=== PATIENT | female | born 1935 | race Two or more races ===

== ENCOUNTER 2024-03-26 17:53 | Emergency (ER) | payer MEDICARE ==
[~2024-03-26] VITALS: Ht 170.2 cm; Wt 85.7 kg
[2024-03-26 17:58] VITALS: TEMP 98.2
[2024-03-26 18:36] LABS: BASOPHILS % (AUTO) 0.2 % (0.0-2.0); EOSINOPHILS # (AUTO) 0.2 K/uL (0.0-0.7); EOSINOPHILS % (AUTO) 1.7 % (0.0-6.0); HEMATOCRIT 36 % (33-45); HEMOGLOBIN 11.6 g/dL (11.5-14.8); LYMPHOCYTES # (AUTO) 0.9 K/uL (0.8-4.8); LYMPHOCYTES % (AUTO) 6.1 % (20.0-44.0); MEAN CORPUSCULAR HEMOGLOBIN 28 PG (26.0-33.0); MEAN CORPUSCULAR HGB CONC 32 g/dl (31.0-36.0); MEAN CORPUSCULAR VOLUME 86 fL (82-100); MONOCYTES # (AUTO) 0.7 K/uL (0.1-1.30); MONOCYTES % (AUTO) 4.9 % (2.0-12.0); NEUTROPHILS # (AUTO) 12.2 K/uL (1.8-8.9); NEUTROPHILS % (AUTO) 87.1 % (43.0-81.0); PLATELET COUNT (AUTO) 216 K/uL (150-450); RED BLOOD CELL COUNT(AUTO) 4.18 MIL/uL (4.0-5.2)
[2024-03-26 18:50] LABS: CALCIUM, SERUM 8.7 mg/dL (8.5-10.1); CARBON DIOXIDE 24 mmol/L (21-32); CHLORIDE 97 mmol/L (98-107); CREATININE 1.7 mg/dL (0.6-1.3); GLUCOSE 130 mg/dL (74-106); SODIUM SERUM 132 mmol/L (136-145); UREA NITROGEN, BLOOD 30 mg/dL (7-18)
[2024-03-26 19:03] LABS: ALANINE AMINOTRANSFERASE 15 U/L (12-78); ALBUMIN 2.6 g/dL (3.4-5.0); ALKALINE PHOSPHATASE 77 U/L (46-116); ASPARTATE AMINOTRANSFERASE 8 U/L (15-37); BILIRUBIN,DIRECT 0.1 mg/dL (0.0-0.2); BILIRUBIN,TOTAL 0.4 mg/dL (0.2-1.0); NT-PRO BNP 1463 pg/mL (0-125); TOTAL PROTEIN, SERUM 6.7 g/dL (6.4-8.2)
[2024-03-26] MEDS ORDERED: LEVO112T72 PO (19:29)
[2024-03-26] MEDS ORDERED: QUET25TA PO (19:29)
[2024-03-26] MEDS ORDERED: LOSA25TA27 PO (19:29)
[2024-03-26] MEDS ORDERED: LORA-258 PO (19:29)
[2024-03-26] MEDS ORDERED: ACET-73 PO (19:29)
[2024-03-26] MEDS ORDERED: LORAZEPAM INJ 2 MG/ML VIAL ONE (20:29)
[2024-03-26] MEDS: LORAZEPAM INJ 2 MG/ML VIAL IV ONE (20:44)
[2024-03-26 20:53] VITALS: BP 124/60; O2SAT 96
== END 2024-03-26 20:54 | disposition left against medical advice (07) ==
LOC: ER 18:38
DX: R55 Syncope and collapse (principal); R07.9 Chest pain, unspecified; R09.02 Hypoxemia; F03.90 Unspecified dementia, unspecified severity, without behavioral disturbance, psychotic disturbance, mood disturbance, and anxiety; I10 Essential (primary) hypertension; Z20.822 Contact with and (suspected) exposure to COVID-19
CPT/HCPCS: 99285; 96374; 71045; 87426; 93005; 85025; 80048; 83605; 80076; 85378; 36415; 84484 ×2; 83880; J2060